=== PATIENT | male | born 1965 | race Hispanic/Latino ===

== ENCOUNTER 2017-10-18 22:45 | Emergency (ER) | payer OTHER, BC | END 2017-10-18 23:29 | disposition home or self-care (01) | LOC: EDH 22:45 | DX: M72.2 Plantar fascial fibromatosis (principal) | CPT/HCPCS: 73630 ==

== ENCOUNTER 2024-04-18 05:01 | Emergency (ER) | payer OTHER ==
[~2024-04-18] VITALS: Ht 167.6 cm; Wt 88.5 kg
[2024-04-18 05:59] LABS: CREATININE 1.4 mg/dL (0.5-1.3)
[2024-04-18 06:02] LABS: URIC ACID 6.5 mg/dL (2.6-7.2)
[2024-04-18] MEDS: FAMOTIDINE 20MG TAB PO ONE (06:11)
[2024-04-18] MEDS: Solu-medROL 125MG VIAL IM ONE (06:11)
[2024-04-18] MEDS ORDERED: COLC0.6T73 PO (06:17)
[2024-04-18] MEDS: COLCHicine 0.6 MG TABLET PO SCH (06:22)
[2024-04-18 06:27] VITALS: BP 128/73; PULSE 70; RESP 20; TEMP 98.4; O2SAT 100
== END 2024-04-18 06:29 | disposition home or self-care (01) ==
LOC: EDH 05:01
DX: M10.9 Gout, unspecified (principal); K21.9 Gastro-esophageal reflux disease without esophagitis; Z79.899 Other long term (current) drug therapy; Z90.49 Acquired absence of other specified parts of digestive tract; Z98.890 Other specified postprocedural states
CPT/HCPCS: 99283; 84550; 80048; 36415; 96372; J2919